=== PATIENT | male | born 1970 | race Caucasian/White ===

== ENCOUNTER 2021-03-19 15:39 | Inpatient (IN) | payer MEDICARE, BC ==
[~2021-03-19] VITALS: Ht 188 cm; Wt 123.3 kg
[~2021-03-19 15:39] MED LIST: ALBIPROI INH; ASPI81EC; CEFD300 PO; CODACE30 PO; DIVA125; FLUO10; HYDACE5 PO; LEVFLO500 PO; LITHIUM; LOSA25; METO25ER; NITRSPRAY; RXCODACET PO; WARF10; WARF7.5
[2021-03-19] MEDS ORDERED: ENTRESTO 24 MG1 EACH PO (15:52)
[2021-03-19] MEDS ORDERED: Hair, Skin & N1 EACH PO ×2 (15:53→16:56)
[2021-03-19] MEDS ORDERED: TORSE20 PO (15:53)
[2021-03-19] MEDS ORDERED: HYDHCL25 PO (15:54)
[2021-03-19] MEDS ORDERED: FARXIGA5 MG PO (15:55)
[2021-03-19] MEDS ORDERED: SOTO80 PO (15:55)
[2021-03-19] MEDS ORDERED: MELA3 PO (15:56)
[2021-03-19] MEDS ORDERED: WARF5 PO ×2 (15:57→16:55)
[2021-03-19] MEDS ORDERED: ESCI10 PO ×2 (15:58→15:59)
[2021-03-19] MEDS ORDERED: LEVSOD150 PO (15:59)
[2021-03-19] MEDS ORDERED: ACET500 PO (16:00)
[2021-03-19] MEDS ORDERED: SPIR25 PO (16:00)
[2021-03-19] MEDS ORDERED: TRIPLE ANTIBIOT28 GM TOP (16:02)
[2021-03-19] MEDS ORDERED: ORAL ANESTHETIC9 GM MM (16:03)
[2021-03-19 16:04] LABS: BASOPHILS ABSOLUTE AUTO 0.05 K/mm3 (0.00-0.23); BASOPHILS PERCENT AUTO 1 % (0-2); EOSINOPHILS ABSOLUTE AUTO 0.19 K/mm3 (0.00-0.68); EOSINOPHILS PERCENT AUTO 2 % (0-6); Hematocrit 42.8 % (37.0-53.0); Hemoglobin 14.1 g/dL (13.5-17.5); IMMATURE GRAN ABSOLUTE AUTO 0.02 K/mm3 (0.00-0.10); IMMATURE GRAN PERCENT AUTO 0 % (0-1); LYMPHOCYTES ABSOLUTE AUTO 2.53 K/mm3 (0.84-5.20); LYMPHOCYTES PERCENT AUTO 30 % (21-46); MONOCYTES ABSOLUTE AUTO 0.65 K/mm3 (0.16-1.47); MONOCYTES PERCENT AUTO 8 % (4-13); Mean Corpuscular HGB 27.2 pg (26.0-34.0); Mean Corpuscular HGB Conc 32.9 g/dL (31.5-36.5); Mean Corpuscular Volume 83 fL (80-100); Mean Platelet Volume 11.6 fL (9.1-12.4); NEUTROPHILS ABSOLUTE AUTO 4.91 K/mm3 (1.96-9.15); NEUTROPHILS PERCENT AUTO 59 % (41-73); Platelet Count 229 K/mm3 (150-400); RDW Coefficient Variation 15.2 % (11.7-14.2); RDW Standard Deviation 45.7 fL (35.1-46.3); Red Blood Cell Count 5.19 M/mm3 (4.30-5.90); White Blood Cell Count 8.35 K/mm3 (4.00-11.30)
[2021-03-19 16:26] LABS: Alanine Aminotransfer (ALT/SGP 19 U/L (12-78); Albumin/Globulin Ratio 1.2 (0.8-1.8); Alk Phos 101 U/L (50-136); Anion Gap 10 mmol/L (6-16); Aspartate Aminotrans (AST/SGOT 15 U/L (12-37); Bilirubin, Total 0.5 mg/dL (0.1-1.0); Blood Urea Nitrogen 16 mg/dL (8-24); Bun/Creatinine Ratio 12.7 (12.0-20.0); CO2, Blood 19 mmol/L (21-32); Chloride, Blood 114 mmol/L (98-108); Creatinine, Blood 1.26 mg/dL (0.60-1.20); Globulin, Blood 2.6 g/dL (2.2-4.0); Glomerular Filtration Rate >60 (60-); Glucose, Blood 113 mg/dL (70-99); Potassium, Blood 2.7 mmol/L (3.5-5.5); Sodium, Blood 143 mmol/L (136-145); Total Protein, Blood 5.6 g/dL (6.4-8.2); Troponin I <0.015 ng/mL (0.000-0.040)
[2021-03-19 16:29] LABS: International Normalized Ratio 3.1; Prothrombin Time Results 31.4 Sec (9.7-11.5)
--- NOTE | 2021-03-20 04:42 | NUR ---
HOSPITALIST NOTIFIED NOTIFIED OF PT'S SUDDEN DECREASE IN HR WITH HYPOTENSION. PT CONVERTED TO SINUS RHYTHM @ APPROX 0200, HR REMAINED 80'S-90'S, @ 0408 ACUTE DIALYSIS NURSE REPORTED HR 50'-60'S. PT WAS SLEEPING AT THE TIME, AROUSABLE, ALERT, ASYMPTOMATIC. HOPSPITALIST ORDERED AMIODORONE GTT TO BE D/C AT THIS TIME & TO CONTINUE TO OBSERVE PT. AMIODORONE GTT D/C
[2021-03-20 04:46] LABS: International Normalized Ratio 2.73; Prothrombin Time Results 27.9 Sec (9.7-11.5)
[2021-03-20 04:48] LABS: Bun/Creatinine Ratio 14.4 (12.0-20.0); Calcium, Blood 8.2 mg/dL (8.5-10.1); Creatinine, Blood 1.67 mg/dL (0.60-1.20); Potassium, Blood 4.3 mmol/L (3.5-5.5)
--- NOTE | 2021-03-20 07:00 | NUR ---
SUMMARY PT IS CURRENTLY SR @ 59, REMAINS HYPOTENSIVE, ASYMPOTAMATIC, A&O X4, ON RA. PT CONTINUES TO DENY CP/PRESSURE THROUGH THE NIGHT. AMIODORONE GTT WAS D/C (SEE PREVIOUS NOTE). PT IS TOLERATING PO INTAKE, VOIDING WNL. REPORT GIVEN TO DAY RN. CALL LIGHT IN REACH
--- NOTE | 2021-03-20 18:44 | NUR ---
SHIFT SUMMARY PT RESTED ON AND OFF THROUGHOUT THE DAY. PT'S BP WAS DECREASED EARLIER THIS AFTERNOON BUT WITH INCREASED ACTIVITY AND PO INTAKE IT HAS STABLIZED. PT IS IN NSR AND DENIES CP AND SOB. PT IS INDEPENDENT IN THE ROOM. POSSIBLE DISCHARGE TOMORROW
[2021-03-21 04:29] LABS: International Normalized Ratio 3.38; Prothrombin Time Results 34.1 Sec (9.7-11.5)
[2021-03-21 04:49] LABS: Anion Gap 6 mmol/L (6-16); Blood Urea Nitrogen 22 mg/dL (8-24); Bun/Creatinine Ratio 16.9 (12.0-20.0); CO2, Blood 23 mmol/L (21-32); Calcium, Blood 8.1 mg/dL (8.5-10.1); Chloride, Blood 109 mmol/L (98-108); Glomerular Filtration Rate >60 (60-); Glucose, Blood 92 mg/dL (70-99); Potassium, Blood 3.9 mmol/L (3.5-5.5); Sodium, Blood 138 mmol/L (136-145)
--- NOTE | 2021-03-21 05:43 | NUR ---
SHIFT SUMMARY NO ACUTE CHANGES NOTED THROUGH THE NIGHT. VSS, ON RA, INDEPENDENT IN THE ROOM. PT REMAINS IN NSR, DENIES CP/PRESSURE. TOLERATING PO INTAKE, VOIDING WNL. WCTM & REPORT TO DAY RN. CALL LIGHT IN REACH
[2021-03-21] MEDS ORDERED: AMIODARONE HCL400 M2 PO (12:37)
[2021-03-21] MEDS ORDERED: Amiodarone HCl200 MG PO (12:38)
--- NOTE | 2021-03-21 14:28 | NUR ---
DISCHARGE SUMMARY PT DISCHARGE AT APPROX 1425. DISCHARGE INSTRUCTIONS REVIEWED c PT, HE HAD NO FURTHER QUESTIONS AT THIS TIME. NEW MEDICATIONS REVIEWED AND NEEDED RX FAXED TO PHARMACY. SON AT BEDSIDE c PT AT THIS TIME. IV'S REMOVED, SITE APPEARED WNL. PT STATED HE HAD ALL OF HIS BELONGINGS.
== END 2021-03-21 14:20 | disposition home or self-care (01) | DRG 308 ==
LOC: ER 15:39 → PCU 15:40
PROVIDERS: Family Medicine; Physician Assistant; ADMIT Hospitalist
DX: I48.0 Paroxysmal atrial fibrillation (principal); Q20.3 Discordant ventriculoarterial connection; I50.22 Chronic systolic (congestive) heart failure; E87.6 Hypokalemia; I11.0 Hypertensive heart disease with heart failure; J45.909 Unspecified asthma, uncomplicated; E89.0 Postprocedural hypothyroidism; I47.2 Ventricular tachycardia; F32.9 Major depressive disorder, single episode, unspecified; E66.9 Obesity, unspecified; G47.33 Obstructive sleep apnea (adult) (pediatric); Z95.810 Presence of automatic (implantable) cardiac defibrillator; Z95.3 Presence of xenogenic heart valve; Z68.32 Body mass index [BMI] 32.0-32.9, adult; Z88.0 Allergy status to penicillin; Z88.8 Allergy status to other drugs, medicaments and biological substances; Z79.01 Long term (current) use of anticoagulants; Z79.82 Long term (current) use of aspirin; Z79.891 Long term (current) use of opiate analgesic; Z79.899 Other long term (current) drug therapy
CPT/HCPCS: 36415; 71045; 80048; 80053; 82947; 84439; 84443; 84484; 85025; 85610; 85730; 93005; 93010; 94660; 94762; 96374; 96376; 99285-25; A9270; G0378; J0282; J3480; J7050; J7060

== ENCOUNTER 2021-03-25 15:49 | Emergency (ER) | payer MEDICARE, BC ==
[~2021-03-25] VITALS: Ht 188 cm; Wt 113.4 kg
[~2021-03-25 15:49] MED LIST changes: +ACET500 PO; +AMIODARONE HCL400 M2 PO; +Amiodarone HCl200 MG PO; +ENTRESTO 24 MG1 EACH PO; +ESCI10 PO; +FARXIGA5 MG PO; +HYDHCL25 PO; +Hair, Skin & N1 EACH PO; +LEVSOD150 PO; +MELA3 PO; +ORAL ANESTHETIC9 GM MM; +SOTO80 PO; +SPIR25 PO; +TORSE20 PO; +TRIPLE ANTIBIOT28 GM TOP; +WARF5 PO
[2021-03-25 17:06] LABS: BASOPHILS ABSOLUTE AUTO 0.04 K/mm3 (0.00-0.23); BASOPHILS PERCENT AUTO 1 % (0-2); EOSINOPHILS ABSOLUTE AUTO 0.12 K/mm3 (0.00-0.68); EOSINOPHILS PERCENT AUTO 2 % (0-6); Hematocrit 47.1 % (37.0-53.0); Hemoglobin 15.8 g/dL (13.5-17.5); IMMATURE GRAN ABSOLUTE AUTO 0.02 K/mm3 (0.00-0.10); IMMATURE GRAN PERCENT AUTO 0 % (0-1); LYMPHOCYTES ABSOLUTE AUTO 2.03 K/mm3 (0.84-5.20); LYMPHOCYTES PERCENT AUTO 30 % (21-46); MONOCYTES ABSOLUTE AUTO 0.51 K/mm3 (0.16-1.47); MONOCYTES PERCENT AUTO 7 % (4-13); Mean Corpuscular HGB 27.4 pg (26.0-34.0); Mean Corpuscular HGB Conc 33.5 g/dL (31.5-36.5); Mean Corpuscular Volume 82 fL (80-100); Mean Platelet Volume 11.5 fL (9.1-12.4); NEUTROPHILS ABSOLUTE AUTO 4.14 K/mm3 (1.96-9.15); NEUTROPHILS PERCENT AUTO 60 % (41-73); Platelet Count 236 K/mm3 (150-400); RDW Coefficient Variation 15.5 % (11.7-14.2); RDW Standard Deviation 45.6 fL (35.1-46.3); Red Blood Cell Count 5.77 M/mm3 (4.30-5.90); White Blood Cell Count 6.86 K/mm3 (4.00-11.30)
[2021-03-25 17:27] LABS: Alanine Aminotransfer (ALT/SGP 26 U/L (12-78); Albumin, Blood 3.8 g/dL (3.4-5.0); Albumin/Globulin Ratio 1.1 (0.8-1.8); Alk Phos 127 U/L (50-136); Anion Gap 9 mmol/L (6-16); Aspartate Aminotrans (AST/SGOT 30 U/L (12-37); Bilirubin, Total 0.5 mg/dL (0.1-1.0); Blood Urea Nitrogen 11 mg/dL (8-24); Bun/Creatinine Ratio 7.5 (12.0-20.0); CO2, Blood 21 mmol/L (21-32); Calcium, Blood 8.7 mg/dL (8.5-10.1); Chloride, Blood 109 mmol/L (98-108); Creatinine, Blood 1.46 mg/dL (0.60-1.20); Globulin, Blood 3.5 g/dL (2.2-4.0); Glomerular Filtration Rate 54 (60-); Glucose, Blood 117 mg/dL (70-99); Potassium, Blood 3.8 mmol/L (3.5-5.5); Sodium, Blood 139 mmol/L (136-145); Total Protein, Blood 7.3 g/dL (6.4-8.2); Troponin I <0.015 ng/mL (0.000-0.040)
== END 2021-03-25 19:39 | disposition left against medical advice (07) ==
LOC: ER 15:49
PROVIDERS: Physician Assistant
DX: R00.2 Palpitations (principal); Z53.21 Procedure and treatment not carried out due to patient leaving prior to being seen by health care provider
CPT/HCPCS: 36415; 71046; 80053; 84484; 85025; 93005; 93010; 99284-25